=== PATIENT | female | born 1995 | race Caucasian/White ===

== ENCOUNTER 2024-01-19 09:46 | Emergency (ER) | payer SELFPAY ==
[~2024-01-19] VITALS: Ht 172.7 cm; Wt 72.7 kg
[2024-01-19 09:47] VITALS: TEMP 98.8
[2024-01-19] MEDS: METOCLOPRAMIDE INJ 10MG/2ML VIAL IV ONE (10:42)
[2024-01-19] MEDS: ONDANSETRON 4MG 2ML VIAL IV ONE (11:05)
[2024-01-19 11:06] LABS: HEMATOCRIT 39.2 % (36.0-47.0); HEMOGLOBIN 13.3 g/dl (12.0-15.5); MEAN CORPUSCULAR HEMOGLOBIN 30.2 pg (27.0-33.0); MEAN CORPUSCULAR HGB CONC 33.9 g/dl (32.0-36.5); MEAN CORPUSCULAR VOLUME 89.1 fl (80.0-96.0); PLATELET COUNT, AUTOMATED 189 10^3/uL (150-450); WHITE BLOOD COUNT 7.8 10^3/uL (4.0-10.0)
[2024-01-19] MEDS ORDERED: ISOVUE-370 76% 100ML VIAL As Ordered ONE (11:14)
[2024-01-19 11:28] LABS: HCG, SERUM QUALITATIVE NEGATIVE (NEGATIVE)
[2024-01-19] MEDS ORDERED: HOME MED LIST COMPLETE! XX SCH (11:45)
[2024-01-19] MEDS: KETOROLAC 30 MG/ML 1ML VIAL IV ONE (12:26)
[2024-01-19 13:00] VITALS: BP 100/62
[2024-01-19 13:01] VITALS: O2SAT 100
[2024-01-19] MEDS ORDERED: IMIT50TA PO (13:39)
== END 2024-01-19 13:50 | disposition home or self-care (01) ==
LOC: M ED 09:46
DX: G43.809 Other migraine, not intractable, without status migrainosus (principal); Q07.00 Arnold-Chiari syndrome without spina bifida or hydrocephalus; Q76.49 Other congenital malformations of spine, not associated with scoliosis; R94.31 Abnormal electrocardiogram [ECG] [EKG]; Z79.899 Other long term (current) drug therapy
CPT/HCPCS: 70450; 70496; 70498; 80047; 84703; 85027; 93005; 96374; 96375; 99284; J1885; J2405; J2765; Q9967